=== PATIENT | female | born 1985 | race African-American/Black ===

== ENCOUNTER 2017-05-03 01:09 | Emergency (ER) | payer OTHER ==
[2017-05-03 02:41] VITALS: BP 146/87; PULSE 83; TEMP 98.2; BMI 23.5
[2017-05-03] MEDS ORDERED: ACETAMINOPHEN 1000 MG/100 ML VIAL (NON FORMULARY) IVPB ONE (03:01)
[2017-05-03] MEDS ORDERED: SODIUM CHLORIDE 0.9% 1000 ML INFUS.BAG IV ONE (03:01)
[2017-05-03 03:10] LABS: URINE APPEARANCE CLEAR; URINE BILIRUBIN NEGATIVE (NEGATIVE); URINE BLOOD NEGATIVE (NEGATIVE); URINE COLOR LTYELLOW; URINE GLUCOSE (UA) NEGATIVE (NEGATIVE); URINE KETONE NEGATIVE (NEGATIVE); URINE LEUK ESTERASE TRACE (NEGATIVE); URINE NITRITE NEGATIVE (NEGATIVE); URINE PROTEIN NEGATIVE (NEGATIVE); URINE UROBILINOGEN 2.0 E.U/dl E.U./dl (0.2-1.0)
[2017-05-03 03:13] LABS: URINE RBC 1 /hpf (0-3); URINE WBC 6 /hpf (3-5)
[2017-05-03] MEDS ORDERED: ACETAMINOPHEN INJECTION 100 ML IVPB ONE (03:29)
[2017-05-03 03:42] LABS: BASOPHIL 1.3 % (0-2.0); EOSINOPHIL 0.4 % (0-4.5); MCH 26.5 pg (25.7-33.7); MCHC 32.1 g/dl (32.0-36.0); MEAN CELL VOLUME 82.8 fl (80-96); MEAN PLT VOLUME 8.7 fl (7.5-11.1); PLATELET COUNT 177 K/MM3 (134-434); RDW 14.8 % (11.6-15.6); WHITE BLOOD COUNT 9.1 K/mm3 (4.0-10.0)
[2017-05-03 04:08] LABS: ALBUMIN 3.7 g/dl (3.4-5.0); ALK PHOS 52 U/L (45-117); ANION GAP 7 (8-16); BILIRUBIN,TOTAL 0.6 mg/dL (0.2-1.0); CALCIUM 8.8 mg/dL (8.5-10.1); CO2 28 mmol/L (21-32); GLUCOSE,RANDOM 82 mg/dL (74-106); SGOT/AST 17 U/L (15-37); SGPT/ALT 22 U/L (12-78); TOT PROT 6.9 g/dl (6.4-8.2)
[2017-05-03] MEDS ORDERED: KETOROLAC TROMETHAMINE 30 MG/1 ML VIAL IVPUSH ONE (04:17)
[2017-05-03] MEDS ORDERED: KETOROLAC TROMETHAMINE 30 MG/1 ML VIAL ONE (04:29)
--- NOTE | 2017-05-03 04:29 | PDOC ---
History of Present Illness - General Chief Complaint: Pain Stated Complaint: ABDOMINAL PAIN Time Seen by Provider: 05/03/17 02:36 History Source: Patient Exam Limitations: No Limitations - History of Present Illness Initial Comments: 05/03/17 04:25 Patient is a 31 year old female with h/o ectopic c/o lower abd pain x 4 days. States LMP 1 week ago period finished 4 days ago then the pain started directly. Pain is 6//10 contraction like, intermittent. Denies nausea, vomiting, dysuria, constipation, diarrhea PMD: Elisa Madrigal PMHX: as above PSOCHX: neg cig, etoh, drug ALL: NKDA GENERAL/CONSTITUTIONAL: [No fever or chills. No weakness. No weight change.] HEAD, EYES, EARS, NOSE AND THROAT: [No change in vision. No ear pain or discharge. No sore throat.] CARDIOVASCULAR: [No chest pain or shortness of breath.] RESPIRATORY: [No cough, wheezing, or hemoptysis.] GASTROINTESTINAL: [No nausea, vomiting, diarrhea or constipation. No rectal bleeding.] GENITOURINARY: [No dysuria, frequency, or change in urination.] MUSCULOSKELETAL: [No joint or muscle swelling or pain. No neck or back pain.] SKIN AND BREASTS: [No rash or easy bruising.] NEUROLOGIC: [No headache, vertigo, loss of consciousness, or loss of sensation.] PSYCHIATRIC: [No depression or anxiety.] ENDOCRINE: [No increased thirst. No abnormal weight change.] HEMATOLOGIC/LYMPHATIC: [No anemia, easy bleeding, or history of blood clots.] ALLERGIC/IMMUNOLOGIC: [No hives or skin allergy. No latex allergy.] GENERAL: [The patient is awake, alert, and fully oriented, in no acute distress. ] HEAD: [Normal with no signs of trauma.] EYES: [Pupils equal, round and reactive to light, extraocular movements intact, sclera anicteric, conjunctiva clear.] ENT: [Ears normal, nares patent, oropharynx clear without exudates. Moist mucous membranes.] NECK: [Normal range of motion, supple without lymphadenopathy, JVD, or masses.] LUNGS: [Breath sounds equal, clear to auscultation bilaterally. No wheezes, and no crackles.] HEART: [Regular rate and rhythm, normal S1 and S2 without murmur, rub.] ABDOMEN: [Soft, (+) tenderness suprapubic most over C/S scar, tenderness RLQ, normoactive bowel sounds. No guarding, no rebound. No masses.] PELVIC: normal external genitalia, creamy discharge in vault, no adenexal tenderness, no CMT EXTREMITIES: [Normal range of motion, no edema. No clubbing or cyanosis. No cords, erythema, or tenderness.] NEUROLOGICAL: [Cranial nerves II through XII grossly intact. Normal speech, normal gait.] PSYCH: [Normal mood, normal affect.] SKIN: [Warm, Dry, normal turgor, no rashes or lesions noted.] Past History - Past Medical History Allergies/Adverse Reactions: Allergies Allergy/AdvReac Type Severity Reaction Status Date / Time No Known Allergies Allergy Verified 05/03/17 02:37 Home Medications: Ambulatory Orders Pnv95/Ferrous Fumarate/FA [ Vitamin Tablet] 1 each PO DAILY 11/21/16 Ibuprofen [Motrin -] 600 mg PO TID #21 tablet 11/22/16 Asthma: No Cancer: No Cardiac Disorders: No Diabetes: No HTN: No Suicide Attempt (Hx): No Seizures: No Thyroid Disease: No Other medical history: Pt denies - Reproductive History (#): 9 Para: 2 Ectopic : Yes (1 year ago) Therapeutic (s) & number: No Spontaneous : 2 - Immunization History Immunization Up to Date: Yes - Psycho/Social/Smoking Cessation Hx Anxiety: No Suicidal Ideation: No Smoking History: Current every day smoker Have you smoked in the past 12 months: Yes Number of Cigarettes Smoked Daily: 4 If you are a former smoker, when did you quit?: when she found about Information on smoking cessation initiated: No Hx Alcohol Use: No Drug/Substance Use Hx: No Substance Use Type: None Hx Substance Use Treatment: No Abd/GI Specific PMHX - Complaint Specific PMHX Colitis: No Diverticulitis: No Gall Bladder Disease: No GERD: No Hepatitis: No Irritable Bowel Synd (IBS): No Pancreatitis: No GI Ulcer Disease: No *Physical Exam - Vital Signs Last Vital Signs Temp Pulse Resp BP Pulse Ox 98.2 F 83 18 146/87 99 05/03/17 02:38 05/03/17 02:38 05/03/17 02:38 05/03/17 02:38 05/03/17 02:38 ED Treatment Course - LABORATORY CBC & Chemistry Diagram: 05/03/17 03:20 05/03/17 03:20 - ADDITIONAL ORDERS Additional order review: Laboratory Results 05/03/17 05/03/17 05/03/17 03:20 03:00 03:00 Sodium 141 Potassium 3.6 Chloride 106 Carbon Dioxide 28 Anion Gap 7 L BUN 15 D Creatinine 1.0 D Creat Clearance w eGFR > 60 Random Glucose 82 Calcium 8.8 Total Bilirubin 0.6 D AST 17 ALT 22 Alkaline Phosphatase 52 D Total Protein 6.9 Albumin 3.7 Urine Color Ltyellow Urine Appearance Clear Urine pH 5.0 Urine Protein Negative Urine Glucose (UA) Negative Urine Ketones Negative Urine Blood Negative Urine Nitrite Negative Urine Bilirubin Negative Urine Urobilinogen 2.0 e.u/dl H Ur Leukocyte Esterase Trace H D Urine RBC 1 Urine WBC 6 Ur Epithelial Cells Rare Urine HCG, Qual Negative 05/03/17 03:20 RBC 4.56 D MCV 82.8 MCHC 32.1 RDW 14.8 MPV 8.7 Neutrophils % 83.0 H Lymphocytes % 10.0 Monocytes % 5.3 Eosinophils % 0.4 Basophils % 1.3 - RADIOLOGY Radiology Studies Ordered: Category Date Time Status ABDOMEN & PELVIS CT WITH CONTR [CT] Stat CT Scan 05/03/17 04:17 Ordered - Medications Given in the ED: ED Medications Discontinued Medications Generic Name Dose Route Start Last Admin Trade Name Yohannesq PRN Reason Stop Dose Admin Acetaminophen 1,000 mg 05/03/17 03:01 05/03/17 03:33 Ofirmev Injection - IVPB 05/03/17 03:02 1,000 mg ONCE ONE Administration Sodium Chloride 1,000 ml 05/03/17 03:01 05/03/17 03:33 Normal Saline - IV 05/03/17 03:02 1,000 ml ONCE ONE Administration Medical Decision Making - Medical Decision Making Patient is a 31 year old female with h/o ectopic c/o lower abd pain x 4 days suspicion for pelvic cause of pain but patient is tender in the RLQ will r/o appendicitis. labs, pain meds, ct abd reassess Patient still c/o pain given Toradol 30mg IV 05/03/17 06:59 Patient Name: Kyaw Wilson This is a preliminary report by imaging transmission engineer Exam:Contrast-enhanced CT abdomen and pelvis Images: [id number] Clinical indication: Lower abdominal pain. Findings: The lung bases are clear. A subcentimeter hypodensity is noted in the right lobe of liver. The liver, gallbladder, spleen and pancreas all have a normal appearance. The adrenal glands are unremarkable. The kidneys have a normal appearance and enhance symmetrically. There is no evidence of urinary tract obstruction. The gastrointestinal tract does not appear obstructed. No thickened or dilated bowel is seen. The appendix has a normal appearance. There is no mesenteric infiltration. The uterus is anteverted. No adnexal masses are seen. The urinary bladder is unremarkable. No abdominal or pelvic adenopathy is seen. No lytic or blastic destructive osseous lesions are seen. Impression: No inflammatory process identified in the abdomen or pelvis. No abdominal mass, adenopathy or collection seen. No explanation seen for this patient's abdominal pain. THIS DOCUMENT HAS BEEN ELECTRONICALLY SIGNED Bishop Garsia M.D. 05/03/2017 06:53 BEN Rice Please call Imaging Farm[facility] [phone] ([phone]) with questions I discussed the physical exam findings, ancillary test results and final diagnoses with the patient. I answered all of the patient's questions. The patient was satisfied with the care received and felt comfortable with the discharge plan and treatment plan. The Patient agrees to follow up with the primary care physician within 24-72 hours. *DC/Admit/Observation/Transfer Diagnosis at time of Disposition: Suprapubic pain - Discharge Dispostion Disposition: HOME Condition at time of disposition: Stable - Patient Instructions Printed Discharge Instructions: DI for Abdominal Pain-Adult Additional Instructions: Your Discharge Instructions: You must call primary care physician within 24 hours to arrange follow-up. Return to the Emergency Department with any new, persistent or worsening symptoms, for fever, chills, SOB, dizziness or any other concerning changes that may occur. Follow up with [facility]
== END 2017-05-03 08:02 | disposition home or self-care (01) ==
LOC: JER 01:09
PROC: 3E033NZ Introduction of Analgesics, Hypnotics, Sedatives into Peripheral Vein, Percutaneous Approach (ICD-10-PCS; principal; 2017-05-03)
PROC: 3E0333Z Introduction of Anti-inflammatory into Peripheral Vein, Percutaneous Approach (ICD-10-PCS; 2017-05-03)
DX: R10.30 Lower abdominal pain, unspecified (principal); F17.210 Nicotine dependence, cigarettes, uncomplicated
CPT/HCPCS: 36415; 74177-TC; 80053; 81003; 81015; 84703; 85025; 87086; 87491; 87591; 96374; 96375; 99281-25; 99283-25

== ENCOUNTER 2018-02-16 00:11 | Emergency (ER) | payer OTHER ==
[2018-02-16 02:45] VITALS: BP 133/93; PULSE 63; TEMP 99; BMI 18.0
[2018-02-16] MEDS ORDERED: LIDOCAINE 1%/EPI 1:100000 (20 ML MULTI DOSE VIAL) ONE (03:13)
--- NOTE | 2018-02-16 03:41 | PDOC ---
History of Present Illness - General Chief Complaint: Laceration Stated Complaint: R ARM LAC Time Seen by Provider: 02/16/18 02:46 - History of Present Illness Initial Comments: 02/16/18 03:35 CHIEF COMPLAINT: HISTORY OF PRESENT ILLNESS: 32 yo F with no PMH presents to ED with laceration to R arm s/p injury approximately 30 min prior to arirval. Patient reports she punched a window approximately that shattered and subsequently cut herself. Patient is unsure when her last tetanus shot was. No recent travel or sick contacts. PAST MEDICAL HISTORY: Denies past medical history FAMILY HISTORY: Denies SOCIAL HISTORY: Lives at home with ____. Occupation: . Denies tobacco, alcohol, illicit drug use. SURGICAL HISTORY: Denies ALLERGIES: No known drug allergies REVIEW OF SYSTEMS General/Constitutional: Denies fever or chills. Denies weakness, weight change. HEENT: Denies change in vision. Denies ear pain or discharge. Denies sore throat. Cardiovascular: Denies chest pain or shortness of breath. Respiratory: Denies cough, wheezing, or hemoptysis. Gastrointestinal: Denies nausea, vomiting, diarrhea or constipation. Denies rectal bleeding. Genitourinary: Denies dysuria, frequency, or change in urination. Musculoskeletal: Denies joint or muscle swelling or pain. Denies neck or back pain. Skin and breasts: Denies rash or easy bruising. PHYSICAL EXAM General Appearance: Well-appearing, appropriately dressed. No apparent distress , no intoxication. HEENT: EOMI, PERRLA, normal ENT inspection, normal voice, TMs normal, pharynx normal. No conjunctival pallor. No photophobia, scleral icterus. Neck: Supple. Trachea midline. No tenderness, rigidity, carotid bruit, stridor , lymphadenopathy, or thyromegaly. Respiratory/Chest: Lungs CTAB. No shortness of breath, chest tenderness, respiratory distress, accessory muscle use. No crackles, rales, rhonchi, stridor , wheezing, dullness Cardiovascular: RRR. S1, S2. No JVD, murmur, bradycardia, tachycardia. Vascular Pulses: Dorsalis-Pedis (R): 2+, Dorsalis-Pedis (L): 2+ Gastrointestinal/Abdominal: Normal bowel sounds. Abdomen soft, non-distended. No tenderness or rebound tenderness. No organomegaly, pulsatile mass, guarding , hernia, hepatomegaly, splenomegaly. Lymphatic: No adenopathy, tenderness. Musculoskeletal/Extremities: Normal inspection. FROM of all extremities, normal capillary refill. Pelvis Stable. No CVA tenderness. No tenderness to extremities, pedal edema, swelling, erythema or deformity. Integumentary: Linear laceration approximately 1 cm in length just superior to anterior elbow. Flap laceration approximately 2 cm in length just lateral to R anterior elbow. Appropriate color, dry, warm. No cyanosis, erythema, jaundice or rash Neurologic: engineering operations leader II-XII intact. Fully oriented, alert. Appropriate mood/affect. Motor strength 5/5. No appreciable EOM palsy, facial droop or sensory deficit. Past History - Past Medical History Allergies/Adverse Reactions: Allergies Allergy/AdvReac Type Severity Reaction Status Date / Time No Known Allergies Allergy Verified 02/16/18 02:44 Home Medications: Ambulatory Orders NK [No Known Home Medication] 05/06/17 Asthma: No Cancer: No Cardiac Disorders: No COPD: No Diabetes: No HTN: No Seizures: No Thyroid Disease: No - Reproductive History (#): 9 Para: 2 Ectopic : Yes (1 year ago) Therapeutic (s) & number: No Spontaneous : 2 - Immunization History Immunization Up to Date: Yes - Suicide/Smoking/Psychosocial Hx Smoking History: Never smoked Have you smoked in the past 12 months: No Number of Cigarettes Smoked Daily: 4 If you are a former smoker, when did you quit?: when she found about Information on smoking cessation initiated: No Hx Alcohol Use: No Drug/Substance Use Hx: No Substance Use Type: None Hx Substance Use Treatment: No *Physical Exam - Vital Signs Last Vital Signs Temp Pulse Resp BP Pulse Ox 99.0 F 63 14 133/93 100 02/16/18 02:44 02/16/18 02:44 02/16/18 02:44 02/16/18 02:44 02/16/18 02:44 Procedures - Consent Consent obtained: Verbal - Laceration/Wound Repair Right Anterior Arm Wound Length: to 2.5 cm Wound Explored: clean Wound's Depth, Shape: superficial Irrigated w/ Saline: Yes Betadine Prep: Yes Anesthesia: 1% Lidocaine w/ Epi Amount of Anesthetic (ccs): 3 Wound Repaired With: Sutures Suture Size/Type: 4:0 Number of Sutures: 3 Layer Closure: No Sterile Dressing Applied: Yes (bacitracin, bandaid) Right Lower Anterior Arm Wound Length: to 2.5 cm Wound Explored: clean Wound's Depth, Shape: flap Irrigated w/ Saline: Yes Betadine Prep: Yes Anesthesia: 1% Lidocaine w/ Epi Amount of Anesthetic (ccs): 5 Wound Repaired With: Sutures Suture Size/Type: 4:0 Number of Sutures: 5 Layer Closure: No Sterile Dressing Applied: Yes (bacitracin, bandaid) Medical Decision Making - Medical Decision Making 02/16/18 03:39 32 yo F with no PMH presents to ED with laceration to R arm s/p injury approximately 30 min prior to arirval. -lac repair performed (see procedure note) *DC/Admit/Observation/Transfer Diagnosis at time of Disposition: Laceration of right upper arm Qualifiers: Encounter type: initial encounter Qualified Code(s): S41.111A - Laceration without foreign body of right upper arm, initial encounter - Discharge Dispostion Disposition: HOME Condition at time of disposition: Stable Admit: No - Referrals - Patient Instructions Printed Discharge Instructions: DI for Laceration Repair Additional Instructions: As discussed, please keep area of laceration clean and dry for the next 24-48 hours. You may apply the ointment for the next 48 hours, afterwards you may wash with mild soap and water and keep dry. Return to fast track or your primary care doctor for suture removal in 10-14 days. If you experience any redness, swelling, streaking, warmth, to the site of the cut, or develop fever, nausea, vomiting, or diarrhea, please return to the ER. - Post Discharge Activity
== END 2018-02-16 03:47 | disposition home or self-care (01) ==
LOC: JER 00:11
PROC: 0HQDXZZ Repair Right Lower Arm Skin, External Approach (ICD-10-PCS; principal; 2018-02-16)
DX: S41.111A Laceration without foreign body of right upper arm, initial encounter (principal); W22.8XXA Striking against or struck by other objects, initial encounter; Y93.89 Activity, other specified; Y92.9 Unspecified place or not applicable; Z87.891 Personal history of nicotine dependence
CPT/HCPCS: 12002; 99283-25

== ENCOUNTER 2018-10-09 10:57 | Emergency (ER) | payer OTHER ==
[2018-10-09 11:02] VITALS: BP 126/86; PULSE 83; TEMP 99.4; BMI 25.9
[2018-10-09] MEDS ORDERED: IBUPROFEN 600 MG TABLET (FP) PO ONE ×2 (11:17→11:23)
--- NOTE | 2018-10-09 11:20 | PDOC ---
History of Present Illness - General Chief Complaint: Respiratory Stated Complaint: SOB Time Seen by Provider: 10/09/18 11:12 History Source: Patient Exam Limitations: No Limitations - History of Present Illness Initial Comments: 10/09/18 11:18 32 yr female with flu like symptoms 2 days chills, runny nose cough body aches. neg vomiting or nausea, some urinary complaints. Past History - Past Medical History Allergies/Adverse Reactions: Allergies Allergy/AdvReac Type Severity Reaction Status Date / Time No Known Allergies Allergy Verified 10/09/18 10:59 Home Medications: Ambulatory Orders NK [No Known Home Medication] 10/09/18 Asthma: No Cancer: No Cardiac Disorders: No COPD: No DVT: No Diabetes: No HTN: No Seizures: No Thyroid Disease: No - Reproductive History (#): 9 Para: 2 Ectopic : Yes (1 year ago) Therapeutic (s) & number: No Spontaneous : 2 - Immunization History Immunization Up to Date: Yes - Suicide/Smoking/Psychosocial Hx Smoking History: Current every day smoker Have you smoked in the past 12 months: No Number of Cigarettes Smoked Daily: 4 If you are a former smoker, when did you quit?: when she found about Information on smoking cessation initiated: No Hx Alcohol Use: No Drug/Substance Use Hx: No Substance Use Type: None Hx Substance Use Treatment: No *Physical Exam - Vital Signs Last Vital Signs Temp Pulse Resp BP Pulse Ox 99.4 F 83 16 126/86 100 10/09/18 11:00 10/09/18 11:00 10/09/18 11:00 10/09/18 11:00 10/09/18 11:00 - Physical Exam General Appearance: Yes: Nourished, Appropriately Dressed HEENT: positive: EOMI, DEBRA, TMs Normal, Pharynx Normal Neck: positive: Supple. negative: Tender, Lymphadenopathy (R), Lymphadenopathy (L) Respiratory/Chest: positive: Lungs Clear, Normal Breath Sounds. negative: Chest Tender, Rhonchi Cardiovascular: positive: Regular Rhythm, Regular Rate Gastrointestinal/Abdominal: positive: Normal Bowel Sounds, Soft. negative: Tender Musculoskeletal: positive: Normal Inspection Extremity: positive: Normal Capillary Refill, Normal Inspection, Normal Range of Motion Integumentary: positive: Normal Color, Dry, Warm Neurologic: positive: product safety lead II-XII NML intact, Fully Oriented, Alert, Normal Mood/ Affect, Normal Response, Motor Strength 03/19 Medical Decision Making - Medical Decision Making 10/09/18 11:19 cc: cough body aches neg fever non toxic stable vitals will check influenza, UA 10/09/18 12:09 *DC/Admit/Observation/Transfer Diagnosis at time of Disposition: Flu-like symptoms - Discharge Dispostion Disposition: HOME Condition at time of disposition: Good - Referrals Referrals: Mehdi Marroquin MD [Staff Physician] - - Patient Instructions Additional Instructions: drink pleanty of water to stay well hydrated increase vitamin C in your diet to boost immunity (Carole C) is over the counter and take once daily take ibuprofen 600-800mg every 8hrs for body aches, fever chills (over the counter advil, motrin or ibuprofen all the same) negative for influenza tea with honey and lemon can be soothing for upset stomach have bland diet - Post Discharge Activity
[2018-10-09 11:44] LABS: HCG,QUALITATIVE URINE Negative
[2018-10-09 11:55] LABS: URINE APPEARANCE CLEAR; URINE BILIRUBIN NEGATIVE (<2.0 mg/dL); URINE COLOR LTYELLOW; URINE GLUCOSE (UA) NEGATIVE (NEGATIVE); URINE KETONE NEGATIVE (NEGATIVE); URINE LEUK ESTERASE 1+ (NEGATIVE); URINE NITRITE NEGATIVE (NEGATIVE); URINE PROTEIN NEGATIVE (NEGATIVE)
[2018-10-09 12:19] LABS: EPI CELLS RARE /HPF (FEW); URINE BACTERIA MANY /hpf (NONE SEEN); URINE MUCUS RARE
== END 2018-10-09 12:27 | disposition home or self-care (01) ==
LOC: JERFT 10:57
DX: J11.1 Influenza due to unidentified influenza virus with other respiratory manifestations (principal)
CPT/HCPCS: 81003; 81015; 84703; 87804; 99281-25

== ENCOUNTER 2018-12-04 13:55 | Emergency (ER) | payer OTHER ==
[2018-12-04 14:03] VITALS: BP 144/87; PULSE 85; TEMP 98.2; BMI 25.0
[2018-12-04] MEDS ORDERED: ACETAMINOPHEN 325 MG TABLET (FP) PO ONE (15:21)
[2018-12-04] MEDS ORDERED: ACETAMINOPHEN 325 MG TABLET (FP) ONE (15:38)
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
--- NOTE | 2018-12-07 13:20 | EKG ---
Test Reason : Blood Pressure : / mmHG Vent. Rate : 069 BPM Atrial Rate : 069 BPM P-R Int : 162 ms QRS Dur : 092 ms QT Int : 376 ms P-R-T Axes : 035 010 004 degrees QTc Int : 402 ms NORMAL SINUS RHYTHM ABNORMAL ECG NO PREVIOUS ECGS AVAILABLE Confirmed by ANGELIQUE IGLESIAS, LUKASZ ([id number]) on 12/07/2018 1:20:28 PM Referred By: Confirmed By:LUKASZ MERINO MD
== END 2018-12-04 19:01 | disposition home or self-care (01) ==
LOC: JER 13:55
DX: R07.89 Other chest pain (principal); M54.89 Other dorsalgia
CPT/HCPCS: 71046-TC-FY; 84703; 93005; 93010; 99281-25

== ENCOUNTER 2018-12-16 15:25 | Emergency (ER) | payer OTHER ==
[2018-12-16 15:33] VITALS: BMI 25.0
[2018-12-16] MEDS ORDERED: ACETAMINOPHEN 500 MG TABLET (FP) PO ONE (15:57)
--- NOTE | 2018-12-16 15:57 | PDOC ---
Rapid Medical Evaluation Chief Complaint: Chest Pain Time Seen by Provider: 12/16/18 15:32 Medical Evaluation: Allergies Allergy/AdvReac Type Severity Reaction Status Date / Time No Known Allergies Allergy Verified 12/16/18 15:33 Vital Signs Temp Pulse Resp BP Pulse Ox 98.3 F 95 H 18 148/85 100 12/16/18 15:31 12/16/18 15:31 12/16/18 15:31 12/16/18 15:31 12/16/18 15:31 12/16/18 15:53 Pt c/o: mid sternal CP x 2 months which she describes as sharp pain Pt on brief exam: tender to left midsternum Pt ordered for: ekg labs, tylenol Pt to proceed to the ED Discharge Disposition - Diagnosis Musculoskeletal chest pain - Referrals - Patient Instructions - Post Discharge Activity
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
[2018-12-16] MEDS ORDERED: ONDANSETRON *ODT* 4 MG TABLET SL ONE (16:05)
[2018-12-16] MEDS ORDERED: ONDANSETRON *ODT* 4 MG TABLET ONE (17:14)
[2018-12-16] MEDS ORDERED: ACETAMINOPHEN 325 MG TABLET (FP) ONE (17:14)
[2018-12-16 17:37] LABS: BASO % 0.7 % (0-2.0); EOS % 0.6 % (0-4.5); HEMATOCRIT 36.3 % (32.4-45.2); HEMOGLOBIN 12.5 GM/dL (10.7-15.3); LYMPH % 21.2 % (8-40); MCH 29.4 pg (25.7-33.7); MCHC 34.4 g/dl (32.0-36.0); MEAN CELL VOLUME 85.5 fl (80-96); MONO % 5.5 % (3.8-10.2); PLATELET COUNT 199 K/MM3 (134-434); RBC 4.25 M/mm3 (3.60-5.2); RDW 13.8 % (11.6-15.6); WHITE BLOOD COUNT 7.5 K/mm3 (4.0-10.0)
--- NOTE | 2018-12-16 17:50 | PDOC ---
Attending Attestation - HPI HPI: 12/16/18 17:51 The patient is a 33 year old female with no PMH who presents to the ER with persistent chest pain for the past 3 months. Patient describes the chest pain as constant, stabbing in nature, and 8/10 in severity. Patient has been unable to follow up with her PCP. The patient denies diaphoresis, palpitations, shortness of breath, leg swelling , headache and dizziness. Denies fever, chills, nausea, vomit, diarrhea, constipation, or urinary symptoms. Allergies: NKA Past surgical history: None reported. Social history: No reported alcohol, drug or cigarette use. <Christina Garcia - Last Filed: 12/16/18 17:51> - Resident Resident Name: Dina Kaiser - ED Attending Attestation I have performed the following: I have examined & evaluated the patient, The case was reviewed & discussed with the resident, I agree w/resident's findings & plan, Exceptions are as noted - Physicial Exam PE: 12/16/18 19:13 Patient is awake and alert, anxious appearing, crying intermittently; Normocephalic, atraumatic PERRLA, EOMI CTA Sternal tenderness to palpation reproducing the patient's symptoms RRR No lower extremity edema - Medical Decision Making 12/16/18 19:14 Patient is a 33-year-old female who presents with chronic, reproducible sternal pain for the past 3 months which is effectively controlled by naproxen which the patient did not take in the day of arrival. EKG is unchanged with T wave inversions in anterior leads; cardiac enzymes is within normal limit. Patient is negative for PE by the PERC rule. ACS is highly unlikely. We'll obtain chest x-ray to rule out pneumothorax. Likely discharge. <Arpan Bustamante - Last Filed: 12/16/18 19:16>
[2018-12-16 18:05] LABS: HCG,QUALITATIVE URINE Negative
[2018-12-16 18:14] LABS: ALK PHOS 130 U/L (45-117); ANION GAP 9 MMOL/L (8-16); BILIRUBIN,TOTAL 0.3 mg/dL (0.2-1); BLOOD UREA NITROGEN 16 mg/dL (7-18); CALCIUM 9.4 mg/dL (8.5-10.1); CHLORIDE 105 mmol/L (98-107); CO2 26 mmol/L (21-32); CREATININE 0.9 mg/dL (0.55-1.3); GLUCOSE,RANDOM 74 mg/dL (74-106); SGOT/AST 49 U/L (15-37); SGPT/ALT 25 U/L (13-61); SODIUM 140 mmol/L (136-145); TOT PROT 7.7 g/dl (6.4-8.2)
[2018-12-16 18:17] LABS: URINE APPEARANCE CLEAR; URINE BILIRUBIN NEGATIVE (<2.0 mg/dL); URINE COLOR YELLOW; URINE GLUCOSE (UA) NEGATIVE (NEGATIVE); URINE KETONE NEGATIVE (NEGATIVE); URINE LEUK ESTERASE NEGATIVE (NEGATIVE); URINE NITRITE NEGATIVE (NEGATIVE); URINE PROTEIN NEGATIVE (NEGATIVE); URINE UROBILINOGEN 4.0 E.U/dl mg/dL (0.2-1.0)
[2018-12-16 18:58] LABS: COCAINE, UR NEGATIVE ng/ml (CUTOFF=300); METHADONE, UR NEGATIVE ng/ml (CUTOFF=300); OPIATES, URI NEGATIVE ng/ml (CUTOFF=300); PHENCYCLIDINE,URINE NEGATIVE ng/ml (CUTOFF=25); URINE AMPHETAMINES NEGATIVE ng/ml (CUTOFF=500); URINE BARBITURATES NEGATIVE ng/ml (CUTOFF=200); URINE BENZODIAZEPINES NEGATIVE ng/ml (CUTOFF=200)
[2018-12-16] MEDS ORDERED: KETAMINE HCL 500 MG/10 ML VIAL IV ONE (20:45)
[2018-12-16] MEDS ORDERED: NAPROXEN 500 MG TABLET (FP) PO ONE (21:00)
[2018-12-16] MEDS ORDERED: NAPROXEN 500 MG TABLET (FP) ONE (21:03)
[2018-12-16 21:19] VITALS: BP 120/69; PULSE 70; TEMP 98
[2018-12-16 23:38] LABS: PLATELET ESTIMATE ADEQUATE
--- NOTE | 2018-12-17 16:43 | EKG ---
Test Reason : Blood Pressure : / mmHG Vent. Rate : 089 BPM Atrial Rate : 089 BPM P-R Int : 154 ms QRS Dur : 094 ms QT Int : 344 ms P-R-T Axes : 039 018 018 degrees QTc Int : 418 ms NORMAL SINUS RHYTHM T WAVE ABNORMALITY, CONSIDER ANTERIOR ISCHEMIA ABNORMAL ECG WHEN COMPARED WITH ECG OF 04-DEC-2018 14:17, NO SIGNIFICANT CHANGE WAS FOUND Confirmed by Bev Blackwell ([id number]) on 12/17/2018 4:42:47 PM Referred By: Confirmed By:Bev Blackwell
== END 2018-12-16 21:20 | disposition home or self-care (01) ==
LOC: JER 15:25
DX: R07.89 Other chest pain (principal)
CPT/HCPCS: 36415; 71046-TC-FY; 80053; 80307; 81003; 82550; 82553; 84484; 84703; 85025; 93005; 93010; 99283-25; Q0162

== ENCOUNTER 2019-10-21 11:47 | Emergency (ER) | payer OTHER ==
[2019-10-21 11:55] VITALS: BP 134/76; PULSE 94; TEMP 98; BMI 23.3
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
== END 2019-10-21 12:48 | disposition home or self-care (01) ==
LOC: JERFT 11:47
PROC: 0HQ6XZZ Repair Back Skin, External Approach (ICD-10-PCS; principal; 2019-10-21)
DX: S21.212A Laceration without foreign body of left back wall of thorax without penetration into thoracic cavity, initial encounter (principal); X58.XXXA Exposure to other specified factors, initial encounter; Y93.89 Activity, other specified; Y92.89 Other specified places as the place of occurrence of the external cause; Z87.891 Personal history of nicotine dependence; Z85.3 Personal history of malignant neoplasm of breast
CPT/HCPCS: 17999; 99283-25